=== PATIENT | male | born 1995 | race Caucasian/White ===

== ENCOUNTER 2017-01-29 19:51 | Emergency (ER) ==
[2017-01-29 19:59] VITALS: BP 120/78; TEMP 98.7; BMI 28.3
[2017-01-29] MEDS ORDERED: BOOSTRIX IM ONE (20:02)
--- NOTE | 2017-01-29 20:18 | ED.PDOC ---
General ED Provider: Dr. CM DOSHI Chief Complaint: Finger Laceration Stated Complaint: While opening the dog food can, had cut to left 5th finger. Time Seen by Physician: 20:17 Mode of Arrival: Walk-In Information Source: Patient Primary Care Provider: RICARDO SQUIRES Nursing and Triage Documentation Reviewed and Agree: Yes Skin Complaint Exam - Laceration/Upper Ext. Complaint/Exam Location of Injury: Left (5th finger) Mechanism of Injury: Laceration Symptoms Are: Still present Initial Severity: Mild Current Severity: None Aggravating: Movement Alleviating: None Associated Signs and Symptoms: Denies: Fever, Chills, Erythema, Numbness, Tingling Differential Diagnoses: Laceration Review of Systems - Review Of Systems Constitutional: Reports: No symptoms Eyes: Reports: No symptoms Ears, Nose, Mouth, Throat: Reports: No symptoms Respiratory: Reports: No symptoms Cardiac: Reports: No symptoms GI: Reports: No symptoms : Reports: No symptoms Musculoskeletal: Reports: No symptoms Skin: Reports: No symptoms Neurological: Reports: No symptoms Endocrine: Reports: No symptoms Hematologic/Lymphatic: Reports: No symptoms All Other Systems: Reviewed and Negative Past Medical History - Past Medical History Previously Healthy: Yes Endocrine: Reports: None Cardiovascular: Reports: None Respiratory: Reports: None Hematological: Reports: None Gastrointestinal: Reports: None Genitourinary: Reports: None Neuro/Psych: Reports: None Musculoskeletal: Reports: None Cancer: Reports: None - Surgical History General Surgical History: Reports: Unknown - Family History Family History: Reports: Unknown - Social History Smoking Status: Never smoker Hx Substance Use: No Alcohol Screening: None - Immunizations Tetanus Shot up to Date: No Physical Exam - Physical Exam Appearance: Well-appearing, No pain distress, Well-nourished Eyes: GERTRUDE, EOMI, Conjunctiva clear ENT: Ears normal, Nose normal, Oropharynx normal Respiratory: Airway patent, Breath sounds clear, Breath sounds equal, Respirations nonlabored Cardiovascular: RRR, Pulses normal, No rub, No murmur GI/: Soft, Nontender, No masses, Bowel sounds normal, No Organomegaly Musculoskeletal: Normal strength, ROM intact, No edema, No calf tenderness Skin: Warm (superficial laceration left 5 th finger, 0.5 cm.), Dry, Normal color Neurological: Sensation intact, Motor intact, Reflexes intact, Cranial nerves intact, Alert, Oriented Psychiatric: Affect appropriate, Mood appropriate Critical Care Note - Critical Care Note Total Time (mins): 15 Course - Course Orders, Labs, Meds: Orders Category Date Time Status Diphth,Pertuss(Acell),Tet Vac [Boostrix] MEDS 01/29/17 20:02 Discontinued 0.5 ml IM .ONCE ONE Medications Discontinued Medications Generic Name Dose Route Start Last Admin Trade Name Freq PRN Reason Stop Dose Admin Diphtheria/Pertussis/Tetanus Vacc 0.5 ml 01/29/17 20:02 Boostrix IM 01/29/17 20:03 .ONCE ONE Vital Signs: Temp Pulse Resp BP Pulse Ox 01/29/17 19:52 98.7 F 78 18 120/78 97 Departure - Departure Time of Disposition: 20:16 Disposition: HOME SELF-CARE Discharge Problem: Laceration of finger Instructions: Laceration (ED) Condition: Good Pt referred to PMD for follow-up: No Additional Instructions: Tylenol prn rest Allergies/Adverse Reactions: Allergies Penicillins Adverse Reaction (Verified 01/29/17 19:56) Home Medications: Ambulatory Orders 1 [No Reported Medications] 01/29/17 Disposition Discussed With: Patient, Family
== END 2017-01-29 20:17 | disposition home or self-care (01) ==
LOC: ED 19:51
DX: S61.217A Laceration without foreign body of left little finger without damage to nail, initial encounter (principal); W26.8XXA Contact with other sharp object(s), not elsewhere classified, initial encounter
CPT/HCPCS: 90471; 90715; 99283